=== PATIENT | male | born 1990 | race Two or more races ===

== ENCOUNTER 2019-01-16 00:45 | Emergency (ER) | payer OTHER ==
[~2019-01-16] VITALS: Ht 177.8 cm; Wt 104.3 kg
[2019-01-16 00:48] VITALS: BP 140/90
--- NOTE | 2019-01-16 00:48 | NUR ---
PT BIB EMS C/O "MARIJUANA OVERDOSE" ANXIETY. PT ADMITHS TO ETOH, MARIJUANA, ATIVAN, XANAX AND VALIUM USE TODAY. PT AMBULATORY WITH STEADY GAIT. NAD NOTED. RESP EVEN AND UNLABORED. PT ON MONITOR IN BED 14. WILL CONTINUE TO MONITOR.
--- NOTE | 2019-01-16 02:12 | NUR ---
IV removed. Catheter intact and site benign. Pressure and 4x4 applied to site. No bleeding noted.
== END 2019-01-16 02:24 | disposition home or self-care (01) ==
LOC: ER 00:47
DX: F19.10 Other psychoactive substance abuse, uncomplicated (principal); F10.10 Alcohol abuse, uncomplicated; F17.200 Nicotine dependence, unspecified, uncomplicated; F41.9 Anxiety disorder, unspecified; R56.9 Unspecified convulsions; Y90.9 Presence of alcohol in blood, level not specified; Z88.8 Allergy status to other drugs, medicaments and biological substances